=== PATIENT | female | born 2005 | race Two or more races ===

== ENCOUNTER 2024-06-20 10:00 | Emergency (ER) | payer MEDICAID, OTHER ==
[~2024-06-20] VITALS: Ht 175.3 cm; Wt 82.3 kg
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
[2024-06-20 11:07] VITALS: BP 138/85; PULSE 77; RESP 17; TEMP 98; O2SAT 100
[2024-06-20] MEDS ORDERED: CYCL-839 PO (11:20)
[2024-06-20] MEDS ORDERED: LIDO5DIS21 TOP (11:20)
[2024-06-20] MEDS ORDERED: IBUP-1455 PO (11:20)
== END 2024-06-20 11:29 | disposition home or self-care (01) ==
LOC: ER 10:00
DX: R51.9 Headache, unspecified (principal); Z79.899 Other long term (current) drug therapy; V89.2XXA Person injured in unspecified motor-vehicle accident, traffic, initial encounter; Y93.I9 Activity, other involving external motion; Y92.89 Other specified places as the place of occurrence of the external cause; Y99.8 Other external cause status
CPT/HCPCS: 70450

== ENCOUNTER 2025-02-02 16:05 | Emergency (ER) | payer MEDICAID, OTHER ==
[~2025-02-02] VITALS: Ht 175.3 cm; Wt 85.2 kg
[~2025-02-02 16:05] MED LIST: CYCL-839 PO; IBUP-1455 PO; LIDO5DIS21 TOP
[2025-02-02] MEDS: ACETAMINOPHEN 325 MG TAB PO ONE (16:30)
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
--- NOTE | 2025-02-02 17:06 | DVH ---
CLINICAL INDICATION: right wrist pain TECHNIQUE: XY R WRIST 3+ VIEW XRAY Comparison: None FINDINGS/IMPRESSION: : There is no evidence of acute fracture or dislocation. Soft tissues are unremarkable.
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
[2025-02-02 20:32] VITALS: BP 121/73; PULSE 88; RESP 17; TEMP 98.4; O2SAT 99
[2025-02-02] MEDS: MUPIROCIN 2% OINT 15gm or 22gm TOP ONE (20:53)
== END 2025-02-02 20:58 | disposition home or self-care (01) ==
LOC: ER 16:10
DX: S63.502A Unspecified sprain of left wrist, initial encounter (principal); T23.072A Burn of unspecified degree of left wrist, initial encounter; V43.52XA Car driver injured in collision with other type car in traffic accident, initial encounter; Y93.89 Activity, other specified; Y92.410 Unspecified street and highway as the place of occurrence of the external cause; Y99.8 Other external cause status
CPT/HCPCS: 16020; 73110